=== PATIENT | female | born 1995 | race Caucasian/White ===

== ENCOUNTER → 2018-09-13 15:09 | Outpatient (CLI) | payer MEDICAID, SELFPAY ==
[2018-09-13 14:15] VITALS: BMI 27.6
[2018-09-13 15:42] LABS: Absolute Lymphocyte Count 2.52 X10^3/ul (0.83-4.51); Absolute Neutrophil Count 7.1 X10^3/uL (2.0-7.7); Basophil# 0.04 X10^3/uL; Basophil% 0.4 % (0-1); Eosinophil# 0.17 X10^3/uL; Eosinophils% 1.6 % (0-5); Hematocrit 39.4 % (37-47); Hemoglobin 13.3 g/dl (12.0-15.0); Lymphocyte # 2.52 X10^3/ul (4.0); Mean Corp Hgb Conc 33.8 g/gl (32-36); Mean Corpuscular Hgb 30.2 pg (27.0-32.0); Mean Corpuscular Volume 89.3 fL (81-99); Mean Platelet Vol. 10.7 fl (6.2-12.0); Monocyte# 1.09 X10^3/uL; Neutrophil # 7.11 X10^3/uL (2.7-7.7); Neutrophil % 64.9 % (47-70); Platelet Count 328 K/mm3 (150-450); RBC Distribution Width CV 12.4 % (11.6-14.6); RBC Distribution Width SD 40.1 fl (35.1-43.9); Red Blood Count 4.41 M/mm3 (4.2-5.4); White Blood Count 10.9 K/mm3 (4.4-11.0)
[2018-09-13 15:49] LABS: POSITIVE COUNT NO; POSITIVE DIFFERENTIAL NO; POSITIVE MORPHOLOGY NO
[2018-09-13 17:01] LABS: HIV - WCH Non-Reactive (Nonreactive); Rubella IgG 302.1 IU/mL
[2018-09-13 21:14] LABS: Chlamydia Trachomatis by PCR Negative (Negative); Neisserai gonorrhoeae by PCR Negative (Negative); Probe Check PASS; Sample Adequacy Control PASS; Specimen Processing Control PASS
[2018-09-14 03:40] LABS: Rapid Plasmin Reagin (RPR) NONREACTIVE (NONREACTIVE)
[2018-09-17 13:42] LABS: HEPATITIS B SURFACE AG Negative (Negative)
[2018-09-19 13:31] LABS: HPV Reflexed? NOT INDICATED
== END ==
PROVIDERS: Nurse Practitioner Women's Health; Referring Provider Obstetrics & Gynecology; Visit Provider Obstetrics & Gynecology
DX: Z34.00 Encounter for supervision of normal first pregnancy, unspecified trimester (principal); Z12.4 Encounter for screening for malignant neoplasm of cervix
CPT/HCPCS: 36415; 85025; 86592; 86703; 86762; 86850; 86900; 87086; 87088; 87340; 87491; 87591; 87624; 88175; G0145

== ENCOUNTER → 2018-10-18 15:34 | Outpatient (CLI) | payer MEDICAID, SELFPAY ==
[2018-10-18 15:05] VITALS: BMI 27.6
== END ==
PROVIDERS: Family Provider Family Medicine; PCP Family Medicine; Referring Provider Obstetrics & Gynecology; Visit Provider Obstetrics & Gynecology
DX: Z34.82 Encounter for supervision of other normal pregnancy, second trimester (principal); Z3A.00 Weeks of gestation of pregnancy not specified
CPT/HCPCS: 36415

== ENCOUNTER 2018-12-16 10:12 | Outpatient (CLI) | payer MEDICAID, SELFPAY ==
[2018-11-23 15:04] VITALS: BMI 27.6
[2018-12-16 10:37] VITALS: BMI 29.6
--- NOTE | 2018-12-16 11:26 | OB.TRI.PN ---
Progress Notes Date of Service: 12/16/18 Progress Note: Abdominal trauma heart tones reassuring no vaginal bleeding or abdominal contractions. RhoGam given for Rh- status. DC home. Multi Select Codes - Urinary/Genital Urinary/Genital CPT Codes: Other Procedure See Report - No charge
== END 2018-12-16 13:25 | disposition home or self-care (01) ==
LOC: WPOUT 10:22 → WP 10:23
PROVIDERS: Family Provider Family Medicine; PCP Family Medicine; Visit Provider Obstetrics & Gynecology
DX: O9A.219 Injury, poisoning and certain other consequences of external causes complicating pregnancy, unspecified trimester (principal); S39.91XA Unspecified injury of abdomen, initial encounter; X58.XXXA Exposure to other specified factors, initial encounter; Y93.9 Activity, unspecified; Y92.9 Unspecified place or not applicable; Y99.9 Unspecified external cause status; Z79.899 Other long term (current) drug therapy; Z3A.00 Weeks of gestation of pregnancy not specified
CPT/HCPCS: 85461; 90384; 96372; 99218; G0378; J2790

== ENCOUNTER → 2019-01-18 10:30 | Outpatient (CLI) | payer MEDICAID, SELFPAY ==
[2019-01-18 10:09] VITALS: BMI 29.6
[2019-01-18 11:16] LABS: Absolute Lymphocyte Count 1.83 X10^3/uL (0.83-4.51); Absolute Neutrophil Count 8.6 X10^3/uL (2.0-7.7); Basophil# 0.06 X10^3/uL; Basophil% 0.5 % (0-1); Eosinophil# 0.14 X10^3/uL; Eosinophils% 1.2 % (0-5); Hemoglobin 12.4 g/dL (12.0-15.0); Lymphocyte # 1.83 X10^3/ul (4.0); Lymphocyte % 15.7 % (19-41); Mean Corp Hgb Conc 32.6 g/dL (32-36); Mean Corpuscular Hgb 30.5 pg (27.0-32.0); Mean Corpuscular Volume 93.4 fL (81-99); Mean Platelet Vol. 10.3 fl (6.2-12.0); Monocyte# 0.89 X10^3/uL; Monocyte% 7.7 % (0-10); NRBC Flagged by Analyzer 0 % (0-5); Platelet Count 290 K/mm3 (150-450); RBC Distribution Width CV 12.1 % (11.6-14.6); RBC Distribution Width SD 41.7 fl (35.1-43.9); Red Blood Count 4.07 M/mm3 (4.2-5.4); White Blood Count 11.6 K/mm3 (4.4-11.0)
[2019-01-18 11:28] LABS: Glucose Challenge Gest 1H 50g 104 mg/dL (70-140)
== END ==
LOC: LAB 10:33 → PAVLAB 10:35
PROVIDERS: Family Provider Family Medicine; PCP Family Medicine; Referring Provider Obstetrics & Gynecology; Visit Provider Obstetrics & Gynecology
DX: O26.892 Other specified pregnancy related conditions, second trimester (principal); Z3A.00 Weeks of gestation of pregnancy not specified
CPT/HCPCS: 36415; 82950; 85025; 86850; 86870; 86900; 86901

== ENCOUNTER 2019-02-18 12:37 | Emergency (ER) | payer MEDICAID, SELFPAY ==
[2019-02-15 10:26] VITALS: BMI 31.6
[2019-02-18 12:39] VITALS: BP 122/66; PULSE 71; RESP 18; TEMP 36.1; O2SAT 100; BMI 31.6
--- NOTE | 2019-02-18 12:52 | CT_ITS ---
STUDY: CTA CHEST REASON FOR EXAM: Female, 23 years old. Shortness of breath. The patient is 30 weeks . RADIATION DOSAGE (If Supplied By Facility): CTDIvol = ( 9.93 ) mGy, DLP = ( 415.37 ) mGycm TECHNIQUE: The examination was performed with the intravenous administration of IV Isovue 370 75CC. Post-processing of the angiographic images was performed, with multiplanar reformation and 3D reconstruction. Individualized dose optimization techniques were used for this CT. COMPARISON: None. FINDINGS: Small bilateral benign-appearing axillary lymph nodes. Normal enhancement of the main pulmonary artery and right and left pulmonary arteries. Normal enhancement of the bilateral peripheral pulmonary arteries. There is no demonstrated pulmonary embolism. Normal thoracic aorta and visualized great vessels. There is no demonstrated aortic dissection. Normal heart and pericardium. Normal mediastinum. Normal hilar regions. Normal visualized trachea and bronchi. The lungs are well expanded. Normal pulmonary parenchyma. Normal pleura. Normal chest wall structures. Normal osseous structures. Normal visualized upper abdomen. CT/CTA Chest W/WO Contrast IMPRESSION: Normal CTA chest examination, without a demonstrated pulmonary embolism or arterial dissection. Electronically Signed: Dario Castellano, at 14:35 EDT , Service support ,
--- NOTE | 2019-02-18 12:58 | NURSING ---
NO OLD EKGS
[2019-02-18 13:33] LABS: Absolute Lymphocyte Count 1.74 X10^3/uL (0.83-4.51); Absolute Neutrophil Count 8.2 X10^3/uL (2.0-7.7); Basophil# 0.05 X10^3/uL; Basophil% 0.5 % (0-1); Eosinophil# 0.11 X10^3/uL; Hematocrit 36.3 % (37-47); Hemoglobin 11.9 g/dL (12.0-15.0); Lymphocyte # 1.74 X10^3/ul (4.0); Lymphocyte % 15.8 % (19-41); Mean Corp Hgb Conc 32.8 g/dL (32-36); Mean Corpuscular Hgb 30.1 pg (27.0-32.0); Mean Corpuscular Volume 91.9 fL (81-99); Mean Platelet Vol. 10.3 fl (6.2-12.0); Monocyte% 8.2 % (0-10); NRBC Flagged by Analyzer 0 % (0-5); Neutrophil # 8.15 X10^3/uL (2.7-7.7); Neutrophil % 73.7 % (47-70); Platelet Count 283 K/mm3 (150-450); RBC Distribution Width CV 12.6 % (11.6-14.6); RBC Distribution Width SD 41.9 fl (35.1-43.9); Red Blood Count 3.95 M/mm3 (4.2-5.4)
[2019-02-18 13:47] LABS: Anion Gap 4 (5-15); BUN 7 mg/dL (7-18); BUN/Creat Ratio 13.3 RATIO (10-20); Calcium,Total 8.9 mg/dL (8.5-10.1); Chloride 108 mmol/L (98-107); Creatinine, Serum 0.52 mg/dL (0.55-1.02); EST Glomerular Filtration Rate 155 mL/min (>60); Est Glom Filt Rate - Afr Amer 187 mL/min (>60); Estimated Creatinine Clearance 158.86 ml/min; Glucose 79 mg/dL (74-106); Potassium 3.9 mmol/L (3.5-5.1); Sodium Level 139 mmol/L (136-145)
--- NOTE | 2019-02-18 14:23 | ED.DCSUM_ITS ---
- ER Visit Summary Date of Service: 02/18/19 Chief Complaint: Shortness of breath History of Present Illness: The patient is a 23 F who presents with shortness of breath. Started this morning when she woke up. She feels some dyspnea with exertion. He does get better with rest. She denies a cough or fever. She has had some intermittent aching in her chest. She has no history of DVT or PE. Denies any history of leg swelling. She is currently 30 weeks gestation, G1, P0. She did get her flu shot on Monday. She has no other cardiac or pulmonary history. Physical Examination: Vital signs reviewed. HEENT exam unremarkable. Heart is regular rate and rhythm without murmurs. Lungs are clear to auscultation. Abdomen is soft and nontender. Extremities reveal no edema. Peripheral pulses are equal. Skin exam normal. Neurologic exam normal. Test Results: Laboratory studies are unremarkable except for hemoglobin 11.9. EKG is a sinus rhythm with nonspecific ST and T wave changes. CAT scan of the chest is normal with no evidence of PE or infiltrate Emergency Department Course and Treatment: I discussed with Dr. Hernandez, who agreed that based on symptoms of PE work-up would be necessary. She was okay with a CTA of the chest as the patient's fetus is 30 weeks gestation. Her laboratory studies show a hemoglobin of 11.9. Otherwise are unremarkable. She her CTA looks unremarkable as well. I am unclear as to why she is feeling so short of breath. She has no abnormal lung sounds. I will give her an albuterol inhaler to see if that will help with her symptoms. 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 It may contain incorrect words, spelling, and punctuation that were not noted in review of the chart prior to signing ED Disposition - Plan for ED Patient: Referrals: Kelly Norris PA-C [Primary Care Provider] -
--- NOTE | 2019-02-18 14:53 | ED.DEP ---
ED Disposition - Plan for ED Patient: Disposition: Home or Assisted Living Instructions: ED Dyspnea Prescriptions: Albuterol Inhaler [Ventolin Hfa] 1 - 2 puff INHALATION Q4H PRN PRN #1 inhaler PRN Reason: Wheezing Prescription Printed Referrals: Kelly Norris PA-C [Primary Care Provider] -
[2019-02-18 15:13] VITALS: RESP 18
== END 2019-02-18 15:18 | disposition home or self-care (01) ==
PROVIDERS: Emergency Provider Emergency Medicine; Family Provider Family Medicine; PCP Family Medicine
DX: O26.893 Other specified pregnancy related conditions, third trimester (principal); R06.00 Dyspnea, unspecified; Z3A.30 30 weeks gestation of pregnancy
CPT/HCPCS: 71275; 80048; 85025; 93005; 99283; Q9967; A4216

== ENCOUNTER → 2019-03-14 10:48 | Outpatient (CLI) | payer MEDICAID, SELFPAY ==
[2019-03-14 10:20] VITALS: BMI 31.6
== END ==
PROVIDERS: Family Provider Family Medicine; PCP Family Medicine; Referring Provider Obstetrics & Gynecology; Visit Provider Obstetrics & Gynecology
DX: O26.892 Other specified pregnancy related conditions, second trimester (principal); Z3A.00 Weeks of gestation of pregnancy not specified
CPT/HCPCS: 36415; 86850; 86900; 86901

== ENCOUNTER → 2019-03-28 10:12 | Outpatient (CLI) | payer MEDICAID, SELFPAY ==
[2019-03-28 09:56] VITALS: BMI 31.6
[2019-03-28 10:39] LABS: Protein, Urine (Random) 20.4 mg/dL (<11.9); Protein:Creat Ratio 158 mg/g CRE (0-200)
[2019-03-28 10:53] LABS: Absolute Lymphocyte Count 2.08 X10^3/uL (0.83-4.51); Absolute Neutrophil Count 7.5 X10^3/uL (2.0-7.7); Basophil# 0.05 X10^3/uL; Basophil% 0.5 % (0-1); Eosinophil# 0.15 X10^3/uL; Eosinophils% 1.4 % (0-5); Hematocrit 36.3 % (37-47); Hemoglobin 11.7 g/dL (12.0-15.0); Lymphocyte # 2.08 X10^3/ul (4.0); Mean Corp Hgb Conc 32.2 g/dL (32-36); Mean Corpuscular Hgb 28.6 pg (27.0-32.0); Mean Corpuscular Volume 88.8 fL (81-99); Mean Platelet Vol. 10.6 fl (6.2-12.0); NRBC Flagged by Analyzer 0 % (0-5); Neutrophil # 7.45 X10^3/uL (2.7-7.7); Platelet Count 289 K/mm3 (150-450); RBC Distribution Width CV 12.5 % (11.6-14.6); RBC Distribution Width SD 40.6 fl (35.1-43.9); Red Blood Count 4.09 M/mm3 (4.2-5.4)
[2019-03-28 11:13] LABS: ALB/GLOB Ratio 0.6 RATIO (0.9-2.4); AST(SGOT) 15 U/L (15-37); Alanine Aminotransfer ALT/SGPT 14 U/L (13-56); Albumin, Serum 2.5 g/dL (3.2-5.0); Alkaline Phosphatase 198 U/L (45-117); Anion Gap 8 (5-15); BUN 10 mg/dL (7-18); BUN/Creat Ratio 16.9 RATIO (10-20); Calcium,Total 8.7 mg/dL (8.5-10.1); Chloride 109 mmol/L (98-107); Creatinine, Serum 0.59 mg/dL (0.55-1.02); EST Glomerular Filtration Rate 135 mL/min (>60); Est Glom Filt Rate - Afr Amer 163 mL/min (>60); Globulin 4.5 g/dL (2.2-4.2); Glucose 120 mg/dL (74-106); Sodium Level 140 mmol/L (136-145)
== END ==
LOC: LABSPEC 10:13 → PAVLAB 10:33
PROVIDERS: Family Provider Family Medicine; PCP Family Medicine; Referring Provider Obstetrics & Gynecology; Visit Provider Obstetrics & Gynecology
DX: O16.3 Unspecified maternal hypertension, third trimester (principal); Z3A.36 36 weeks gestation of pregnancy
CPT/HCPCS: 80053; 82570; 84156; 85025; 87081

== ENCOUNTER 2019-04-10 22:35 | Outpatient (CLI) | payer MEDICAID, SELFPAY ==
[2019-04-03 10:41] VITALS: BMI 31.6
[2019-04-11 01:41] VITALS: BMI 34.6
--- NOTE | 2019-04-13 03:35 | OB.TRI.PN ---
Progress Notes Date of Service: 04/10/19 Progress Note: false labor no cervical change reactive nst fht 150-160 moderate variabilty reactive no decels toco irregular ctx a/p false labor dc home labor precautions - Problem List (1) False labor Status: Acute Multi Select Codes - Urinary/Genital Urinary/Genital CPT Codes: 02512-65 non-stress test Interp
== END 2019-04-11 01:50 | disposition home or self-care (01) ==
LOC: WPOUT 22:57 → WP 22:57
PROVIDERS: Family Provider Family Medicine; PCP Family Medicine; Visit Provider Obstetrics & Gynecology
DX: O47.9 False labor, unspecified (principal); Z3A.00 Weeks of gestation of pregnancy not specified
CPT/HCPCS: 59025; 59050; 99218; G0378

== ENCOUNTER 2019-04-12 08:15 | Inpatient (IN) | payer MEDICAID, SELFPAY ==
[2019-03-14 10:20] VITALS: BMI 31.6
[2019-04-11 10:29] VITALS: BMI 34.6
[2019-04-12 06:29] VITALS: BMI 34.8
[2019-04-12] MEDS: Lactated Ringers 1,000 ML 200 ML IV ×2 (09:00→15:17)
[2019-04-12] MEDS: Lactated Ringers 500 ML 999 ML IV ×2 (09:10→13:09)
[2019-04-12 09:17] LABS: Absolute Neutrophil Count 14.2 X10^3/uL (2.0-7.7); Basophil# 0.04 X10^3/uL; Basophil% 0.2 % (0-1); Eosinophil# 0.02 X10^3/uL; Eosinophils% 0.1 % (0-5); Hematocrit 35.6 % (37-47); Hemoglobin 11.7 g/dL (12.0-15.0); Lymphocyte % 8.8 % (19-41); Mean Corp Hgb Conc 32.9 g/dL (32-36); Mean Corpuscular Hgb 28.6 pg (27.0-32.0); Mean Platelet Vol. 10.7 fl (6.2-12.0); Monocyte# 1.17 X10^3/uL; Monocyte% 6.8 % (0-10); NRBC Flagged by Analyzer 0 % (0-5); Neutrophil # 14.21 X10^3/uL (2.7-7.7); Neutrophil % 83.1 % (47-70); Platelet Count 256 K/mm3 (150-450); RBC Distribution Width CV 13.3 % (11.6-14.6); RBC Distribution Width SD 41.2 fl (35.1-43.9); Red Blood Count 4.09 M/mm3 (4.2-5.4); White Blood Count 17.1 K/mm3 (4.4-11.0)
[2019-04-12] MEDS: fentaNYL-bupivacaine (epidural) 100 ML BAG EPIDURAL ×2 (14:25→18:40)
[2019-04-12] MEDS: Oxytocin 30 units/NS 500 ml 30 UNITS/500 ML IV.SOLN IV (16:47)
[2019-04-12] MEDS: Oxytocin 30 units/NS 500 ml 30 UNITS/500 ML IV.SOLN 999 UNITS IV (20:27)
--- NOTE | 2019-04-12 20:44 | HP.PCM_ITS ---
- Problem List (1) Active labor at term Status: Acute (2) Echogenic bowel of fetus on ultrasound Status: Acute Comment: growth US q4 weeks; CMV negative, toxo-immune titers ordered no acute infection- RESOLVED 02/28/2019 (3) Rh negative status during Status: Acute Qualifiers: Comment: rhogam given 12/16/18 due to trauma, DUE 03/03/2019 (4) Status: Acute Qualifiers: Comment: NIPT-low risk, AFP. horizon negative 14 out of 14 diseases. decline afp. (5) Supervision of normal first Status: Acute Qualifiers: Comment: PRR GUY 04/24/19 girl Netta Fiance:Alisson, girl History Date of Admission: 04/12/19 Final GUY: 04/24/19 Gestational age: 38 Weeks and 2 Days History of this : This is a 23 year-old, , at 38 weeks gestational age presents IAL regular ctx no vb lof good fm. Medical History: Medical History (Last Reviewed 04/11/19 @ 10:29 by Wanda Kelly) Heart murmur R01.1 Allergies No Known Allergies Allergy (Verified 04/12/19 06:29) Home Medications: Home Medications vitamin#30 30 mg iron-10 mg iron-folic acid 1 mg-omg3 capsule 1 cap PO DAILY cap 11/23/18 Albuterol Inhaler [Ventolin Hfa] 1 - 2 puff INHALATION Q4H PRN PRN #1 inhaler 02/18/19 blood pressure test kit-medium cuff See Rx Instructions .ROUTE .MEDSUPPLY #1 ea 03/28/19 Smoking Status: Former smoker Alcohol: None Number of Fetus(es): 1 NST - FHR Rate Baby A Baseline: 130 Variability:: Moderate Accelerations:: 15 x 15 Decelerations:: None NST Reactive:: Yes FHR Category:: Category I Uterine Activity:: no regular History Past Pregnancies: Past Pregnancies Delivery Date Name GA/ Weeks Outcome Route Wt Sex Labor Length Anesthesia Delivery Location Provider FOB Labs: Mom's Labs & Results 04/12/19 04/12/19 09:00 09:00 WBC 17.1 H RBC 4.09 L Hgb 11.7 L Hct 35.6 L MCV 87.0 MCH 28.6 MCHC 32.9 RDW Std Deviation 41.2 RDW Coeff of Frankie 13.3 Plt Count 256 MPV 10.7 Immature Gran % (Auto) 1.000 H Neut % (Auto) 83.1 H Lymph % (Auto) 8.8 L [place] % (Auto) 6.8 Eos % (Auto) 0.1 Baso % (Auto) 0.2 Absolute Neuts (auto) 14.2 H Absolute Lymphs (auto) 1.50 Nucleated RBC % 0 Blood Type O NEGATIVE Antibody Screen POSITIVE H Antibody Identification ANTI-D Course Did the patient receive Yes care? Labs Blood Type: O RH: NEGATIVE RPR/VDRL/Syphilis Nonreactive Rubella status Immune HbSAg Negative Date Done: 09/13/18 Chlamydia Negative Gonorrhea Negative HIV/AIDS Non-Reactive Group B Strep: Negative Current Obstetrical History Gestational Diabetes No Incompetent Cervix No Infertility No IUGR No Macrosomia No Hypertension/Pre-eclampsia No Placenta Previa/Abruption No PTL/PROM No Uterine anomaly No Oligohydramnios No Polyhydramnios No Multiple gestation No Past Medical History Asthma No Diabetes No Hypertension No Heart disease No Mitral valve prolapse Yes: heart murmur Neurologic/Seizure disorder/ No Migraines Kidney disease No Liver disease No Varicosities No Clotting disorders/Hx of DVT No Thyroid Dysfunction No Other medical diseases No Psychiatric disorders No Major trauma No Abnormal PAP smear No Sleep apnea No Mammogram in the last 2 years No Social History Marital Status: Alleged father alisson mares Hx Smoking No Smoking Status Former smoker Expected Infant Delivery Method: Spontaneous Vaginal Review of Systems Constitutional: Denies: Fever, Malaise Eyes: Denies: Blurred vision, Vision Change HEENT: Denies: Head Aches, Visual Changes Cardiovascular: Denies: Chest Pain, Palpitations Respiratory: Denies: Cough, Shortness of Breath, Wheezing Gastrointestinal: Denies: Abdominal Pain, Diarrhea, Nausea, Vomiting Genitourinary: Denies: Dysuria, Hematuria Musculoskeletal: Denies: Joint Pain, Muscle pain Skin: Denies: Lesions, Rash Neurological: Denies: Blurred vision, Focal weakness, Headaches Psychiatric: Denies: Anxiety, Depression Endocrine: Denies: Heat/ Cold Intolerance Hematologic/ Lymphatic: Denies: Easy Bruising, Easy Bleeding Physical Exam General: Alert, Cooperative, No apparent distress HEENT: Atraumatic, Normocephalic. Negative for: Thyromegaly, Lymphadenopathy Cardiovascular: Regular rate Lungs: Normal air movement Abdomen: Soft, Non Tender, Gravid Neurological: Deep Tendon Reflexes 2+/4 and Symmetrical, Neuro grossly intact. Negative for: Clonus FUNDING SPECIALIST: Normal external genitalia. Negative for: Vulvar lesions Estimated gestational size: Appropriate for gestational size Presentation: Cephalic Assessment/Plan All Active Problems (Last Reviewed 04/11/19 @ 10:29 by Wanda Kelly) Active labor at term (Acute) Echogenic bowel of fetus on ultrasound (Acute) Rh negative status during (Acute) (Acute) Supervision of normal first (Acute) Elevated blood pressure affecting in third trimester, antepartum (Resolved) Low lying placenta nos or without hemorrhage, second trimester (Resolved) This is a 23 year-old, , at 38 weeks gestational age presents IAL. admits IAL epi PRN arom clear fluid
--- NOTE | 2019-04-12 20:46 | PCM.OPRPT ---
Problem List (1) Active labor at term Status: Acute (2) Echogenic bowel of fetus on ultrasound Status: Acute Comment: growth US q4 weeks; CMV negative, toxo-immune titers ordered no acute infection- RESOLVED 02/28/2019 (3) Rh negative status during Status: Acute Qualifiers: Comment: rhogam given 12/16/18 due to trauma, DUE 03/03/2019 (4) Status: Acute Qualifiers: Comment: NIPT-low risk, AFP. horizon negative 14 out of 14 diseases. decline afp. (5) Supervision of normal first Status: Acute Qualifiers: Comment: PRR GUY 04/24/19 girl Netta Fiance:Bi, girl Vaginal Delivery Maternal Presentation: Active Labor ial 38 weeks Amniotic Membrane Rupture Type: Artificial Amniotic Fluid Description: Clear Final GUY: 04/24/19 Gestational age: 38 Weeks and 2 Days Date of Procedure: 04/12/19 Pre-Operative Diagnosis: ial Post-Operative Diagnosis: same Surgery/ Procedure Performed: Spontaneous Vaginal Delivery Type of Anesthesia: Epidural Description of Procedure: Patient began pushing and delivered the head in the [JEREMIAS] presentation. The head was delivered atraumatically . The anterior and posterior shoulders delivered without complication followed by the rest of the and the infant was placed on the maternal abdomen. Delayed cord clamping was employed for approximately 60 seconds. Cord was clamped and cut and gentle traction was applied to the cord and the placenta delivered spontaneously immediately following it was noted to be intact with three-vessel cord. The perineum and vagina were inspected and have a first-degree perineal laceration was repaired in the usual fashion with 3-0 Vicryl Rapide. EBL was 400 cc. Patient and infant tolerated delivery well. Presentation: JEREMIAS Placental Delivery Description: Spontaneous Placenta Disposition: [facility] Cord Vessel Description: 3 Vessels Cord Entanglement: None Estimated Blood Loss: 400 A gender: Female Episiotomy Description: None Laceration: Perineal Extension/lac, 1st degree Medications given after delivery: IV Pitocin Complications: None Multi Select Codes - Urinary/Genital Urinary/Genital CPT Codes: 89547-97 non-stress test Interp
[2019-04-12] MEDS: 0.9% Saline Lock 10 ML Syringe IV (22:28)
[2019-04-12 22:31] VITALS: BP 137/66; PULSE 100; RESP 16; TEMP 36.3
[2019-04-12 23:36] VITALS: BP 118/69; PULSE 103; RESP 16; TEMP 36.8
--- NOTE | 2019-04-13 03:36 | PCM.PN.OB ---
Patient Problems: Active and Suspected Problems (Last Reviewed 04/11/19 @ 10:29 by Wanda Kelly) Active labor at term (Acute) Subjective: doing well no complaints pain controlled no CP SOB N V ambulating well tolerating po lochia moderate, going well - Physical Exam Vitals/I&O's: Vital Signs Temp Pulse Resp BP 98.2 F 103 H 16 118/69 04/12/19 23:36 04/12/19 23:36 04/12/19 23:36 04/12/19 23:36 Oxygen Delivery Method Room Air Weight: 215 lb 13.321 oz Body Mass Index (BMI) 34.8 Intake and Output for Last 24 Hours 04/11/19 04/12/19 04/13/19 23:59 23:59 23:59 Intake Total 3517.10 / 3517.10 Output Total 1100 / 1100 500 / 500 Balance 2417.10 / 2417.10 -500 / -500 General: Alert, Oriented x3 Laboratory Results 04/12/19 09:00: WBC 17.1 H, RBC 4.09 L, Hgb 11.7 L, Hct 35.6 L, MCV 87.0, MCH 28.6, MCHC 32.9, RDW Std Deviation 41.2, RDW Coeff of Frankie 13.3, Plt Count 256, MPV 10.7, Immature Gran % (Auto) 1.000 H, Neut % (Auto) 83.1 H, Lymph % (Auto) 8.8 L, [place] % (Auto) 6.8, Eos % (Auto) 0.1, Baso % (Auto) 0.2, Absolute Neuts (auto) 14.2 H, Absolute Lymphs (auto) 1.50, Nucleated RBC % 0 04/12/19 09:00: Blood Type O NEGATIVE, Antibody Screen POSITIVE H, Antibody Identification ANTI-D Current Medications Acetaminophen (Tylenol) 1,000 mg PO Q8H PRN PRN PRN Reason: Pain Score 1-3/10 Bisacodyl (Dulcolax) 10 mg RECTAL UD PRN PRN Reason: If no BM Dibucaine (Dibucaine) 1 applic TOPICAL TID PRN PRN; Protocol PRN Reason: Discomfort Hydrocortisone (Hytone) 1 applic TOPICAL TID PRN PRN; Protocol PRN Reason: Discomfort Methylergonovine Maleate (Methergine) 0.2 mg IM X1 PRN PRN Reason: Excess bleeding/uterine atony Naproxen (Naprosyn) 500 mg PO Q8H PRN PRN PRN Reason: Pain Score 1-3/10 Ondansetron HCl (Zofran) 4 mg IV Q4H PRN PRN PRN Reason: Nausea Oxycodone HCl (Oxyir) 5 - 10 mg PO Q4H PRN PRN PRN Reason: Pain Score 4-10/10 Multivit/Folic Acid/Iron (Prenatabs Fa) 1 tablet PO DAILY@1200 RICK Senna/Docusate Sodium (Senokot-S, Kerrie-Colace) 1 - 2 tablet PO DAILY PRN PRN PRN Reason: Constipation Simethicone (Mylicon) 80 mg PO PCHS PRN PRN Reason: Indigestion/Stomach pain Sodium Chloride () 5 - 15 ml IV UD PRN PRN Reason: SALINE FLUSH Last Admin: 04/12/19 22:28 Dose: 10 ml Documented by: Medical Necessity - Tobacco Use Smoking Status: Former smoker Assessment/Plan All Active Problems (Last Reviewed 04/11/19 @ 10:29 by Wanda Kelly) Active labor at term (Acute) False labor (Acute) Echogenic bowel of fetus on ultrasound (Acute) Rh negative status during (Acute) (Acute) Supervision of normal first (Acute) Elevated blood pressure affecting in third trimester, antepartum (Resolved) Low lying placenta nos or without hemorrhage, second trimester (Resolved) s/p PPD # 1 1. routine post delivery care 2. breast feeding- support given 3. rh negative rhogam PRN 4. rubella immune
--- NOTE | 2019-04-13 03:38 | DCINST_ITS ---
Discharge Diet: No Restrictions Discharge Activity: Return to Normal Activity, May not drive while taking narcotic pain medications., May Shower May resume sexual activity in: 4-6 weeks Call your doctor if your incision/area has: Continuous Slow Oozing, Sudden Increased Bleeding, Increased Pain/ Swelling, Increased Redness, Foul Smelling Discharge Additional Instructions: If you experience any of the following, contact your healthcare provider. * Bleeding that soaks a pad every hour for 2 hours * Fever 100.4 or higher * Unrelieved incision or abdominal pain * Swelling, redness, discharge or bleeding from your incision or episiotomy site * Your incision begins to separate * Problems urinating (including inability to urinate or burning while urinating). * Visual changes * Severe headache * Flu-like symptoms * Pain or redness in one of both of your breasts * Pain, warmth, tenderness or swelling in your legs, especially the calf area * Frequent nausea and vomiting * Symptoms of depression or anxiety If you experience any of the following, call 911 or go to the nearest Emergency Room. * Chest pain * Problems breathing * Seizure activity * Partial or complete paralysis of a body part, slurred speech, weakness or drooping of the face, or a sudden inability to walk or hold your balance Allergies/Adverse Reactions: Allergies No Known Allergies Allergy (Verified 04/12/19 06:29) Medications to take at Discharge vitamin#30 30 mg iron-10 mg iron-folic acid 1 mg-omg3 capsule 1 cap PO DAILY cap 11/23/18 Albuterol Inhaler [Ventolin Hfa] 1 - 2 puff INHALATION Q4H PRN PRN #1 inhaler 02/18/19 blood pressure test kit-medium cuff See Rx Instructions .ROUTE .MEDSUPPLY #1 ea 03/28/19 Naproxen [Naprosyn] 250 - 500 mg PO Q8H PRN PRN #30 tab 04/13/19 The following prescriptions were given: Naproxen [Naprosyn] 250 - 500 mg PO Q8H PRN PRN #30 tab PRN Reason: MILD PAIN Transmission Status: Pending to [facility] Please Follow Up With: Hamida Hernandez MD - [phone] When: Call to make an appointment with your doctor in 6 weeks. If you had elevated Blood pressure or 4th degree laceration you will need to be seen in 2 weeks. Primary Care Physician: Kelly Norris PA-C [Primary Care Provider] - Test Results: Test results from this visit will be discussed in further detail at your follow- up appointment, if applicable.
[2019-04-13 03:43] VITALS: BP 111/52; PULSE 99; RESP 16; TEMP 36.4
[2019-04-13] MEDS: Naproxen 250 MG Tablet 500 MG PO (05:45)
[2019-04-13 08:00] VITALS: BP 112/53; PULSE 89; RESP 16; TEMP 36.2
[2019-04-13 12:00] VITALS: BP 119/71; PULSE 94; RESP 12; TEMP 36.3
[2019-04-13] MEDS: Prenatal Vits Tablet 1 TABLET PO (15:33)
[2019-04-13 16:00] VITALS: BP 147/82; PULSE 88; RESP 12; TEMP 36.4
[2019-04-13 20:01] VITALS: BP 136/73; PULSE 80; RESP 14; TEMP 36.6; O2SAT 98
[2019-04-14 01:51] VITALS: BP 106/47; PULSE 81; RESP 14; TEMP 36.3
[2019-04-14] MEDS: Naproxen 250 MG Tablet 500 MG PO (07:41)
[2019-04-14 07:45] VITALS: BP 118/68; PULSE 88; RESP 16; TEMP 36.9
--- NOTE | 2019-04-14 12:02 | PCM.PN.OB ---
Subjective: doing well no complaints pain controlled no CP SOB N V ambulating well tolerating po lochia moderate, going well - Physical Exam Vitals/I&O's: Vital Signs Temp Pulse Resp BP Pulse Ox 98.4 F 88 16 118/68 98 04/14/19 07:45 04/14/19 07:45 04/14/19 07:45 04/14/19 07:45 04/13/19 20:01 Oxygen Delivery Method Room Air Weight: 215 lb 13.321 oz Body Mass Index (BMI) 34.8 Intake and Output for Last 24 Hours 04/12/19 04/13/19 04/14/19 23:59 23:59 23:59 Intake Total 3517.10 / 3517.10 Output Total 1100 / 1100 850 / 850 Balance 2417.10 / 2417.10 -850 / -850 General: Alert, Oriented x3 Current Medications Acetaminophen (Tylenol) 1,000 mg PO Q8H PRN PRN PRN Reason: Pain Score 1-3/10 Bisacodyl (Dulcolax) 10 mg RECTAL UD PRN PRN Reason: If no BM Dibucaine (Dibucaine) 1 applic TOPICAL TID PRN PRN; Protocol PRN Reason: Discomfort Hydrocortisone (Hytone) 1 applic TOPICAL TID PRN PRN; Protocol PRN Reason: Discomfort Methylergonovine Maleate (Methergine) 0.2 mg IM X1 PRN PRN Reason: Excess bleeding/uterine atony Naproxen (Naprosyn) 500 mg PO Q8H PRN PRN PRN Reason: Pain Score 1-3/10 Last Admin: 04/14/19 07:41 Dose: 500 mg Documented by: Ondansetron HCl (Zofran) 4 mg IV Q4H PRN PRN PRN Reason: Nausea Oxycodone HCl (Oxyir) 5 - 10 mg PO Q4H PRN PRN PRN Reason: Pain Score 4-10/10 Multivit/Folic Acid/Iron (Prenatabs Fa) 1 tablet PO DAILY@1200 RICK Last Admin: 04/13/19 15:33 Dose: 1 tablet Documented by: Senna/Docusate Sodium (Senokot-S, Kerrie-Colace) 1 - 2 tablet PO DAILY PRN PRN PRN Reason: Constipation Simethicone (Mylicon) 80 mg PO PCHS PRN PRN Reason: Indigestion/Stomach pain Sodium Chloride () 5 - 15 ml IV UD PRN PRN Reason: SALINE FLUSH Last Admin: 04/12/19 22:28 Dose: 10 ml Documented by: Medical Necessity - Tobacco Use Smoking Status: Former smoker Assessment/Plan All Active Problems (Last Reviewed 04/11/19 @ 10:29 by Wanda Kelly) Active labor at term (Acute) False labor (Acute) Echogenic bowel of fetus on ultrasound (Acute) Rh negative status during (Acute) (Acute) Supervision of normal first (Acute) Elevated blood pressure affecting in third trimester, antepartum (Resolved) Low lying placenta nos or without hemorrhage, second trimester (Resolved) s/p PPD # 1 1. routine post delivery care 2. breast feeding- support given 3. rh negative rhogam prn 4. rubella immune
[2019-04-14 14:20] VITALS: BP 114/65; PULSE 72; RESP 16; TEMP 37
[2019-04-14] MEDS: Prenatal Vits Tablet 1 TABLET PO (14:42)
== END 2019-04-14 15:10 | disposition home or self-care (01) | DRG 560 ==
LOC: WPOUT 08:18 → WP 08:18
PROVIDERS: Admitting Provider Obstetrics & Gynecology; Family Provider Family Medicine; PCP Family Medicine; Referring Provider Obstetrics & Gynecology; Visit Provider Obstetrics & Gynecology
DX: O99.413 Diseases of the circulatory system complicating pregnancy, third trimester (principal); R01.1 Cardiac murmur, unspecified; O36.0130 Maternal care for anti-D [Rh] antibodies, third trimester, not applicable or unspecified; O70.0 First degree perineal laceration during delivery; Z3A.38 38 weeks gestation of pregnancy; Z37.0 Single live birth; Z87.891 Personal history of nicotine dependence
CPT/HCPCS: 59025; 59050; 85025; 86850; 86870; 86900; 86901; 99218; J7120; A4216; G0378

== ENCOUNTER → 2020-06-22 11:20 | Outpatient (CLI) | payer OTHER, MEDICAID, SELFPAY ==
[2020-06-22 10:31] VITALS: BMI 27.6
--- NOTE | 2020-06-22 11:25 | US_ITS ---
STUDY: FIRST TRIMESTER OBSTETRICAL ULTRASOUND REASON FOR EXAM: Female, 24 years old viability LMP: 04/30/2020. TECHNIQUE: Transvaginal TECHNICAL QUALITY: Adequate. PRIOR ULTRASOUND: None. FINDINGS: There is visualization of a single gestational sac in a normal intrauterine position. The mean sac diameter (MSD) measures 2.5 cm, indicating an estimated gestational age (EGA) of 7 weeks, 3 days. The gestational sac shape is elongated. Low-level echoes are seen within the. There is no demonstrated yolk sac. The placenta is non-visualized. There is no demonstrated embryo ( pole). The estimated gestation age (EGA) by LMP is 9 weeks, 4 days. The estimated date of delivery (GUY) by LMP is 01/21/2021. The estimated gestation age (EGA) by US is 7 weeks, 3 days. The estimated date of delivery (GUY) by US is 02/05/2021. The uterus measures 9.9 cm x 6.5 cm x 6.2 cm. There is no demonstrated uterine fibroid. The cervix is closed. Presents of a nabothian cyst. The right ovary measures 3.2 cm x 2 cm x 1.6 cm. There is no right ovarian cyst. There is no visualized right adnexal mass or complex lesion. The left ovary measures 3.2 cm x 2.2 cm x 2.1 cm. There is no left ovarian cyst. There is no visualized left adnexal mass or complex lesion. There is no fluid in the cul de sac. US/Transvaginal w/Preg US IMPRESSION: Intrauterine gestational sac corresponding to a gestational age of 7 weeks and 3 days. The sac is elongated with low-level echoes seen within it. No pole or yolk sac is seen. Sonographic follow-up and beta hCG correlation is recommended. Electronically Signed: Dario Castellano MD at 12:41 EST , Service support ,
== END ==
PROVIDERS: PCP Family Medicine; Referring Provider Obstetrics & Gynecology; Visit Provider Obstetrics & Gynecology
DX: O36.80X0 Pregnancy with inconclusive fetal viability, not applicable or unspecified (principal); Z3A.01 Less than 8 weeks gestation of pregnancy
CPT/HCPCS: 76817

== ENCOUNTER → 2020-06-29 08:55 | Outpatient (CLI) | payer MEDICAID, SELFPAY ==
[2020-06-22 10:31] VITALS: BMI 27.6
--- NOTE | 2020-06-29 08:59 | US_ITS ---
STUDY: FIRST TRIMESTER OBSTETRICAL ULTRASOUND REASON FOR EXAM: Female, 24 years old viability LMP: 04/16/2020. TECHNIQUE: Transvaginal TECHNICAL QUALITY: Adequate. PRIOR ULTRASOUND: Comparison is made with prior examination dated 06/22/2020. FINDINGS: There is visualization of a single gestational sac in a normal intrauterine position. The mean sac diameter (MSD) measures 2.22 cm, indicating an estimated gestational age (EGA) of 7 weeks, 1 days. The gestational sac appears oblong and partially collapsed. There is no demonstrated yolk sac. The placenta is non-visualized. There is no demonstrated embryo ( pole). The estimated gestation age (EGA) by LMP is 10 weeks, 4 days. The estimated date of delivery (GUY) by LMP is 01/21/2021. The estimated gestation age (EGA) by US is 7 weeks, 1 days. The estimated date of delivery (GUY) by US is 04/16/2021. The uterus measures 10.4 cm x 7.8 cm x 6.5 cm. There is no demonstrated uterine fibroid. The cervix is closed. The right ovary measures 1.7 cm x 1.9 cm x 1.6 cm. There is no right ovarian cyst. There is no visualized right adnexal mass or complex lesion. The left ovary measures 2.9 cm x 2.1 cm x 2.5 cm. There is a 1.6 cm x 1.2 cm x 1.4 cm hypoechoic nodule in the left ovary most likely representing a corpus luteum cyst. There is no visualized left adnexal mass or complex lesion. There is no fluid in the cul de sac. US/Transvaginal w/Preg US IMPRESSION: Abnormal appearance of the intrauterine gestational sac with no evidence of pole or yolk sac. Electronically Signed: Dario Castellano MD at 10:29 EST , Service support ,
[2020-06-29 11:17] LABS: hCG Titer Quant., Serum 10753 mIU/mL (1-3)
== END ==
PROVIDERS: Obstetrics & Gynecology; PCP Family Medicine; Referring Provider Obstetrics & Gynecology; Visit Provider Obstetrics & Gynecology
DX: O36.80X0 Pregnancy with inconclusive fetal viability, not applicable or unspecified (principal); Z3A.00 Weeks of gestation of pregnancy not specified
CPT/HCPCS: 36415; 76817; 84702

== ENCOUNTER → 2020-07-06 13:41 | Outpatient (CLI) | payer MEDICAID, SELFPAY ==
[2020-06-29 09:35] VITALS: BMI 28.0
[2020-07-06 14:23] LABS: hCG Titer Quant., Serum 596 mIU/mL (1-3)
== END ==
PROVIDERS: PCP Family Medicine; Referring Provider Obstetrics & Gynecology; Visit Provider Obstetrics & Gynecology
DX: O02.1 Missed abortion (principal)
CPT/HCPCS: 36415; 84702

== ENCOUNTER → 2023-10-05 | Outpatient (CLI) | payer OTHER, SELFPAY ==
[2023-10-09 17:07] LABS: HPV Reflexed? NOT INDICATED
== END | disposition home or self-care (01) ==
PROVIDERS: PCP Family Medicine; Referring Provider Nurse Practitioner Family; Visit Provider Nurse Practitioner Family
DX: Z12.4 Encounter for screening for malignant neoplasm of cervix (principal)
CPT/HCPCS: 88175; G0145

== ENCOUNTER 2024-03-15 08:08 | Emergency (ER) | payer OTHER, SELFPAY ==
[2024-03-15 08:08] VITALS: BP 152/87; PULSE 85; RESP 14; TEMP 35.7; O2SAT 100; BMI 34.3
[2024-03-15] MEDS: Ibuprofen 200 MG Tablet 400 MG PO (08:49)
[2024-03-15 09:23] VITALS: BP 134/78; PULSE 64; RESP 18; TEMP 36.6; O2SAT 99
== END 2024-03-15 09:24 | disposition home or self-care (01) ==
PROVIDERS: Emergency Provider Surgery; PCP Family Medicine; Visit Provider Surgery
DX: S46.911A Strain of unspecified muscle, fascia and tendon at shoulder and upper arm level, right arm, initial encounter (principal); X50.0XXA Overexertion from strenuous movement or load, initial encounter; Y93.89 Activity, other specified; Y99.8 Other external cause status; Z87.891 Personal history of nicotine dependence
CPT/HCPCS: 73030; 99282

== ENCOUNTER → 2025-01-17 | Outpatient (CLI) | payer OTHER, SELFPAY ==
--- NOTE | 2025-01-17 17:49 | US_ITS ---
PROCEDURE: PELVIC W/ TRANSVAGINAL REASON FOR EXAM: PELVIC PAIN TECHNIQUE: Procedure Code: [id number] Modality: US Procedure: PELVIC W/ TRANSVAGINAL COMPARISON: Prior study dated June 29, 2020. FINDINGS: LMP: December 30, 2024. Measurements: Uterus: 10.4 cm x 6.5 cm x 7.8 cm with a volume of 278.57 mL Endometrial Thickness: 9 mm. It is hyperechoic. Right Ovary: 3.6 cm x 2.8 cm x 2 cm with a volume of 2.68 mL. Left Ovary: 3.5 cm x 2.5 cm x 2.1 cm with a volume of 2.68 mL. TRANSABDOMINAL: Uterus: Normal size, myometrial echotexture, and contour. Endometrium: Unremarkable. Right ovary: Normal size and echotexture. Left ovary: Normal size and echotexture. Other: No large pelvic mass identified. Transvaginal sonography was performed to better visualize the endometrium. TRANSVAGINAL: Uterus: Anteverted. Endometrium: Normal echotexture. Right ovary: Normal size and echotexture. Left ovary: Normal size and echotexture. Other adnexal findings: None. Cul-de-sac: No free intraperitoneal fluid identified. Tenderness: No tenderness US/Pelvic w/ Transvaginal IMPRESSION: NORMAL TRANSABDOMINAL AND TRANSVAGINAL PELVIC ULTRASOUND. Reading Location: [place] [id number]
== END | disposition home or self-care (01) ==
LOC: US 17:45
PROVIDERS: PCP Family Medicine; Referring Provider Nurse Practitioner Family; Visit Provider Nurse Practitioner Family
DX: R10.2 Pelvic and perineal pain (principal)
CPT/HCPCS: 76830; 76856